=== PATIENT | male | born 1960 | race Caucasian/White ===

== ENCOUNTER 2020-11-12 04:10 | Emergency (ER) | payer OTHER, BC ==
[~2020-11-12] VITALS: Ht 177.8 cm; Wt 74.8 kg
[2020-11-12 04:10] VITALS: BP 142/84
--- NOTE | 2020-11-12 04:10 | NUR ---
SALVATORE PINEDA. TAKEN TO BED 1
--- NOTE | 2020-11-12 04:20 | NUR ---
SEE COMPLETE ASSESSMENT
--- NOTE | 2020-11-12 04:47 | NUR ---
PT UNABLE TO PROVIDE URINE AT THIS TIME. PT REPORTS NOT HAVING THE URGE TO URINATE. WILL TRY AGAIN.
--- NOTE | 2020-11-12 05:25 | NUR ---
CALLED AURA AT [facility] TO INFORM HER THAT PATIENT WAS MEDICALLY AND WOULD BE RETURNING TO THEIR FACILITY. PER AURA THEY DO NOT HAVE TRANSPORTATION TO [facility] PT.
--- NOTE | 2020-11-12 07:17 | NUR ---
gave report to mo ashley. transfer of care at this time.
[2020-11-12] MEDS ORDERED: MORPHINE SULFATE 4 MG/ML SYR IM ONE (11:10)
--- NOTE | 2020-11-12 13:47 | NUR ---
Has been stable throughout day All VSS Afebrile C/O back pain this am Given maorphine which was effective.. Has been Dc'd back to facilty but Arrangement for ambulance not to occur until this evening pr case management. Being monitored and fed
--- NOTE | 2020-11-12 15:55 | NUR ---
MOVE TO [place] [address] BED. 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
[2020-11-12] MEDS ORDERED: ACETAMINOPHEN EXTRA STRENGTH 500 MG TAB PO ONE (18:20)
[2020-11-12 18:29] VITALS: BP 144/84
--- NOTE | 2020-11-12 19:05 | NUR ---
Stable VSS Pain free Has been discharged Report to [facility] transport Facility aware that patient coming back Ambulated to exit
== END 2020-11-12 19:05 ==
LOC: MED 04:10
DX: U07.1 COVID-19 (principal); J12.89 Other viral pneumonia; K21.9 Gastro-esophageal reflux disease without esophagitis; I10 Essential (primary) hypertension; Z87.448 Personal history of other diseases of urinary system; Z86.73 Personal history of transient ischemic attack (TIA), and cerebral infarction without residual deficits
CPT/HCPCS: 71045; 96372; 99285; J2270

== ENCOUNTER 2022-04-27 17:31 | Emergency (ER) | payer OTHER, BC ==
[~2022-04-27] VITALS: Ht 170.2 cm; Wt 88.5 kg
--- NOTE | 2022-04-27 17:34 | NUR ---
SALVATORE FONSECA ALS TO BED 06.
[2022-04-27 17:52] VITALS: BP 187/119
--- NOTE | 2022-04-27 18:02 | NUR ---
61 Y/O M BIBA FROM [facility] C/O HEADACHE, N/V FOR 5 DAYS, CHILLS, HYPERTENSION AND TACHYCARDIA. PT WAS GIVEN NORCO AT 11 AM AND ZOFRAN. VITALS: 187/119, 112 HR, 96R, 100.7. SEIZURE PADS APPLIED. NKA PMH: EPILEPSY, HEMIPLEGIA, CVA
--- NOTE | 2022-04-27 18:33 | NUR ---
PT TO CT SCAN [place].
--- NOTE | 2022-04-27 18:40 | NUR ---
PT BACK FROM CT.
[2022-04-27] MEDS: IBUPROFEN 600 MG TAB PO ONE (19:08)
--- NOTE | 2022-04-27 19:20 | NUR ---
GAVE REPORT TO VIDHYA KIM.
[2022-04-27] MEDS: ONDANSETRON 4 MG ODT PO ONE (20:31)
[2022-04-27] MEDS: MORPHINE SULFATE 4 MG/ML SYR IM ONE (20:31)
[2022-04-27] MEDS: NACL 0.9% 1,000 ML IV ONE ×2 (21:21→23:22)
[2022-04-27 23:16] LABS: BASOPHILS % (AUTO) 0.3 % (0.0-2.0); EOSINOPHILS % (AUTO) 0.1 % (0.0-4.0); HEMATOCRIT 44.8 % (36-52); HEMOGLOBIN 15.4 g/dL (12.0-18.0); LYMPHOCYTES # (AUTO) 1.3 K/uL (2.0-11.5); LYMPHOCYTES % (AUTO) 9.5 % (20.5-51.1); MEAN CORPUSCULAR HEMOGLOBIN 28 pg (27-31); MEAN CORPUSCULAR HGB CONC 34 g/dL (33-37); MEAN CORPUSCULAR VOLUME 81.2 fL (80-94); MONOCYTES # (AUTO) 1.3 K/uL (0.8-1.0); MONOCYTES % (AUTO) 9.6 % (1.7-9.3); NEUTROPHILS # (AUTO) 10.9 K/uL (1.8-7.7); NEUTROPHILS % (AUTO) 80.5 % (42.2-75.2); PLATELET COUNT (AUTO) 320 K/uL (140-450); RED BLOOD CELL COUNT(AUTO) 5.51 MIL/uL (4.20-6.10); RED CELL DISTRIBUTION WIDTH 13.5 % (11.6-13.7); WHITE BLOOD COUNT (AUTO) 13.5 K/uL (4.8-10.8)
[2022-04-27] MEDS: ENALAPRILAT 2.5 MG/2 ML VIAL IVP ONE (23:20)
[2022-04-27 23:32] LABS: ALBUMIN 3.1 g/dL (3.4-5.0); ANION GAP 10.5 (8-16); CREATININE 0.7 mg/dL (0.6-1.3); POTASSIUM 3.5 mmol/L (3.5-5.1); TOTAL BILIRUBIN 0.6 mg/dL (0.0-1.0)
--- NOTE | 2022-04-28 00:56 | NUR ---
PT TAKEN TO CT
--- NOTE | 2022-04-28 01:10 | NUR ---
PT RETURN FROM CT
--- NOTE | 2022-04-28 03:00 | NUR ---
PT ASLEEP IN BED
--- NOTE | 2022-04-28 07:19 | NUR ---
Pt report given to ROSANNA. Transfer of care at this time.
--- NOTE | 2022-04-28 07:26 | NUR ---
REPORT RECIEVED FROM JUDY KEE FOR TRANSFER OF CARE.
--- NOTE | 2022-04-28 08:30 | NUR ---
[facility] facility called [phone]), no answer at this time.
--- NOTE | 2022-04-28 08:38 | NUR ---
[facility] facility called ([phone]), no answer at this time.
--- NOTE | 2022-04-28 08:55 | NUR ---
[facility] facility called [phone]), no answer at this time.
--- NOTE | 2022-04-28 09:32 | NUR ---
CALLED [facility]. SPOKE WITH KASIA KIM AT [facility] AND IS AWARE OF PATIENT'S DC AND IS AWARE OF [facility] TRANSPORT. 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
--- NOTE | 2022-04-28 09:43 | NUR ---
SPOKE TO ZOIE, NURSE AT [facility] GAVE REPORT NO TIME FOR ETA AT THIS MOMENT.
[2022-04-28 10:13] VITALS: BP 148/98
--- NOTE | 2022-04-28 10:13 | NUR ---
Patient discharged with v/s stable. Written and verbal after care instructions given. Patient verbalized understanding. Wheel Chair Assisted with to car. All questions addressed prior to discharge. Advised to follow up with PMD.
--- NOTE | 2022-04-28 10:15 | NUR ---
SPOKE TO LIN AT [facility] THAT PATIENT IS ON HIS WAY VIA [facility].
--- NOTE | 2022-04-28 10:16 | NUR ---
Chart checked and completed. The patient's care was reviewed and supervised by Nuria Sterling RN.
== END 2022-04-28 10:13 ==
LOC: MED 17:31
DX: R51.9 Headache, unspecified (principal); R11.2 Nausea with vomiting, unspecified; K21.9 Gastro-esophageal reflux disease without esophagitis; I10 Essential (primary) hypertension; F17.200 Nicotine dependence, unspecified, uncomplicated; Z86.73 Personal history of transient ischemic attack (TIA), and cerebral infarction without residual deficits
CPT/HCPCS: 36415; 70450; 74176; 80053; 83690; 85025; 96361; 96372; 96374; 99285; J2270; J3490; J7030; Q0162